=== PATIENT | male | born 1995 | race Caucasian/White ===

== ENCOUNTER 2023-09-24 15:35 | Emergency (ER) | payer OTHER ==
[2023-09-24] MEDS ORDERED: Acetaminophen 500 MG TAB ONE (16:04)
[2023-09-24] MEDS ORDERED: Ketorolac Tromethamine 30 MG (1 mL) VIAL ONE (16:04)
== END 2023-09-24 16:30 | disposition home or self-care (01) ==
LOC: ERS 15:35
DX: S20.212A Contusion of left front wall of thorax, initial encounter (principal); X50.1XXA Overexertion from prolonged static or awkward postures, initial encounter
CPT/HCPCS: 71046; 93005; 96372; J1885